=== PATIENT | female | born 1955 | race Caucasian/White ===

== ENCOUNTER 2019-10-27 05:34 | Inpatient (IN) | payer MEDICARE ==
[2019-10-15 09:13] LABS: HEMATOCRIT 41.6 % (37.0-47.0); HEMOGLOBIN 14.2 gm/dL (12.0-15.0); MCH 30.1 pg (26.0-34.0); MCHC 34.2 g/dL (28.0-37.0); MCV 88.1 fL (80.0-100.0); MPV 9.6 fl. (7.2-11.1); RBC 4.72 mil/uL (4.20-5.00)
[2019-10-15 09:24] LABS: PROTIME 10.6 Seconds (9.20-11.50)
[2019-10-15 09:25] LABS: URINE BILIRUBIN NEGATIVE (Negative); URINE BLOOD NEGATIVE (Negative); URINE CLARITY CLEAR; URINE COLOR YELLOW; URINE GLUCOSE-RANDOM NEGATIVE (Negative); URINE KETONES NEGATIVE (Negative); URINE LEUKOCYTES-REFLEX NEGATIVE (Negative); URINE NITRITE-REFLEX NEGATIVE (Negative); URINE PROTEIN NEGATIVE (Negative); URINE UROBILINOGEN 0.2 E.U./dl (0.2-1.0)
[2019-10-15 09:29] LABS: CALCIUM 9.8 mg/dL (8.5-10.1); POTASSIUM 4.1 mmol/L (3.5-5.1); TOTAL BILIRUBIN 0.3 mg/dL (<0.1-1.0); TOTAL PROTEIN 8.1 g/dL (6.4-8.2)
--- NOTE | 2019-10-21 13:44 | EKG ---
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
[~2019-10-27] VITALS: Ht 162.6 cm; Wt 79.4 kg
[~2019-10-27 05:34] MED LIST: ASA81BEC PO; DULOXETINE HCL60 MG PO; LUNESTA3 MG PO; NEURONTIN 300M300 M2 PO; NITROSTAT0.4 MG SUBLING; OMEPRAZOLE 20 M20 M1 PO; TIZANIDINE4 MG/1 TA1 PO
[2019-10-27 09:30] VITALS: BP 121/69
[2019-10-27 16:00] VITALS: BP 130/66
--- NOTE | 2019-10-27 18:20 | NUR ---
PT A&Ox4. VITALS STABLE. IV PATENT, INFUSING. UP WITH 1 USING GAITBELT AND WALKER. ON 2LO2 WITH PULSE OX. DRESSING C/D/I. PAIN CONTROLLED WITH OXY IR. TOLERATING DIET, DENIED NAUSEA. FALL PRECAUTIONS IN PLACE. CALL LIGHT WITHIN REACH. WILL CONTINUE TO MONITOR.
[2019-10-27 23:49] VITALS: BP 113/66
[2019-10-28 04:14] LABS: HEMATOCRIT 31.7 % (37.0-47.0); HEMOGLOBIN 10.8 gm/dL (12.0-15.0)
[2019-10-28 04:16] VITALS: BP 113/54
--- NOTE | 2019-10-28 04:25 | NUR ---
PATIENT UP TO RESTROOM WITH ASSIST X 1 WITH WALKER DOES WELL. RECEIVED HYDROCODONE Q4 FOR PAIN WHICH SHE IS RATING AT 6/10 AT 0430. O2 IS STILL 4L USING POLAR PACK, STILL HAS HEMOVAC AND DRESSING TO LEFT KNEE IS C/D/I AND JADA HOSE IN PLACE. PLAN IS FOR PAIN MANAGEMENT AND TO WORK WITH THERAPY TODAY. WILL CONTINUE TO FOLLOW PLAN OF CARE.
[2019-10-28 08:02] VITALS: BP 117/70
[2019-10-28] MEDS ORDERED: PERCOCET 5-3251 EACH PO (10:44)
[2019-10-28 10:45] VITALS: BP 117/70
[2019-10-28] MEDS ORDERED: XARELTO10 MG PO (10:45)
--- NOTE | 2019-10-28 11:54 | NUR ---
cm completed initial assessment to discuss d/c planning. pt is a&Ox4. pt sitting up in chair and is talkative. pt states she wants to do outpatient theray at "[facility] in [facility]." pt has crutches, riser and shower bench. pt has Hx w/HH but doesnt recall. pt has no hx w/snf. 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 t has good support. she is active and drives. cm faxed order to [facility].
[2019-10-28 12:12] VITALS: BP 111/54
--- NOTE | 2019-10-28 13:27 | NUR ---
RECIEVED O.T. EVAL AND TX ORDERS. WILL DEFER TO P.T. AT THIS TIME. PLEASE ORDER FURTHER O.T. SERVICES IF NEEDED.
--- NOTE | 2019-10-28 14:29 | NUR ---
DR. ESCALERA GAVE CM A VERBAL ORDER FOR PT.TO GO TO OUTPT.THERAPY AFTER DISCHARGE FROM HOSPITAL. SHE DOES NOT NEED TO DO HOME HEALTH. FAXED ORDER TO [facility] IN [facility]. THEY SAID THEY NEEDED AN ACTUAL PRESCRIPTION FOR OUTPT.ORDER. CM SPOKE WITH JNENIFER/ OFFICE AND INFORMED OF ABOVE. SHE WILL SET UP PTS OUTPT.THERAPY WITH [facility].
--- NOTE | 2019-10-28 14:32 | NUR ---
PT A/O X'S 4. C/O OF RIGHT KNEE PAIN. PRN PAIN MEDICATION ADMININSTERED PER NOV. PT SITTING IN CHAIR FOR MEALS. POLAR PACK IN PLACE. VSS. AFEBRILE. PT C/O OF ITCHYNESS AND STATED THIS STARTED AFTER SURGERY. BENADRYL ADMINISTERED PER NOV. PT DENIES ITCHYNESS IN THROAT.
--- NOTE | 2019-10-28 16:17 | OP ---
[facility] [address] [place] [address] OPERATIVE REPORT Name: JC DE LA ROSA Room: [address] IN [facility]#: [id number] Admission: 10/27/19 Attend Phys: Veena Loredo Discharge: Date of : 53 Report #: [id number] THIS REPORT FOR: //name// cc: Jessica Block MD, Pamela MD ~ THIS REPORT FOR: //name// CC: Jessica Nolasco DATE OF SERVICE: 10/27/2019 PREOPERATIVE DIAGNOSIS: Left knee osteoarthritis. POSTOPERATIVE DIAGNOSIS: Left knee osteoarthritis. PROCEDURE: Left total knee arthroplasty with Navio. SURGEON: Patrick Gaxiola II, DO. FAUCET POLISHER: ELLIOTT Porter. ANESTHESIA: General endotracheal. ESTIMATED BLOOD LOSS: 50 mL. ANTIBIOTICS: Ancef preoperatively. DRAINS: Medium Hemovac. COMPLICATIONS: None. CONDITION: The patient is stable to recovery room. IMPLANTS: Listed in operative record and progress note. BRIEF HISTORY: The patient was seen in the preoperative area. Preoperative H and P was performed. Site was marked. Questions were answered. Risks and benefits were discussed with the patient in detail about surgery. The patient wished to proceed assuming all risks. DESCRIPTION OF PROCEDURE: The patient was taken to the operative suite and placed supine on the operating table and given appropriate anesthesia. A well-padded tourniquet applied to upper thigh, which was inflated to 300 mmHg after gravity exsanguination. The operative knee was sterilely prepped and [facility] [address] [place] [address] OPERATIVE REPORT Name: JC DE LA ROSA Hollie Room: [address] IN M.R.#: [id number] Admission: 10/27/19 Attend Phys: Veena Loredo Discharge: Date of : 53 Report #: [id number] draped. Surgery began by midline incision. This was carried down to the subcutaneous tissues. A medial parapatellar arthrotomy was performed and carried down to bone. Patella was then everted and excess soft tissues and osteophytes removed from around the femur and tibia. The [employer] robotic and alignment guides were then placed on the femur and tibia, registered with the software, and the robotic handpiece was activated. Appropriate femoral and tibial cutting guides were then applied and appropriate cut was made on the femur. The 4-in-1 cutting block was then applied, checked for rotational alignment with the Navio robotic assistance, pinned in appropriate position, and appropriate cuts were made. The tibia was exposed. Excess meniscus was removed. The retractors were placed on collateral ligaments. The tibial cutting block was then applied, checked with robotic assistance, and appropriate cut was made. Excess bone was removed. Tibial base plate was then applied, checked for rotational alignment with the robotic assistance, and pinned in appropriate position. Femur was then applied and box cut was reamed. This was then trialed with appropriate spacer, which showed excellent fit and fill and excellent stability of the knee through all range of motion with the robotic-assisted device. The patella was reamed in appropriate fashion and sized to appropriate size. Three peg holes were drilled. It was then trialed and showed excellent flexion and extension and excellent tracking of the patella within the groove. These trials were then removed. The tibia was punched in appropriate fashion. Bone ends were cleansed with Pulsavac irrigation and cement was mixed and applied to final implants. These were then malleted into position and held the knee in extension and compressed to allow cement to cure. After it cured, excess was removed using [place] and osteotome. Wound was then copiously irrigated and the final spacer was then malleted into position. The tourniquet was deflated. Hemostasis was maintained with electrocautery. Pain cocktail was injected. PRP gel sprayed to internal aspects of the knee. The tracker guides were then removed as well as the pins from the femur and tibia. The capsule was then closed utilizing a #2 FiberWire and #1 Vicryl in [id number] fashion. Hemovac drain was applied. Skin was closed with 2-0 Vicryl and running 3-0 Monocryl. Dermabond and sterile dressing applied. Bautista wrap and PolarCare applied. The patient transported to recovery room in stable condition. Counts were correct throughout the procedure. <ELECTRONICALLY SIGNED> By: Patrick Gaxiola II, DO 10/28/19 1617 [id number] Gaxiola II, DO /nt
--- NOTE | 2019-10-28 16:56 | NUR ---
RECEIVED DISCHARGE ORDERS. IV DC'D. PT EDUCATED ON DISCHARGE INSTRUCTIONS BY NEPTALI VALLE. ALL BELONGINGS INCLUDING CPM PACKED UP AND LEFT WITH PATIENT. SCRIPTS GIVEN TO PATIENT.
--- NOTE | 2019-10-29 08:50 | NUR ---
I have reviewed the documentation by CAESAR SINGH from 10/28/19 to 10/28/19 and I concur with it. SANTIAGO GUILLERMO
== END 2019-10-28 16:57 | disposition home health service (06) | DRG 470 ==
LOC: M.PRE 05:34 → M.ORTHSURG 08:34 → M.TBA 08:34 → M.PRE 09:06 → M.ORTHSURG 15:01
PROVIDERS: Orthopaedic Surgery; ADMIT Internal Medicine
PROC: 0SRD069 Replacement of Left Knee Joint with Oxidized Zirconium on Polyethylene Synthetic Substitute, Cemented, Open Approach (ICD-10-PCS; principal; 2019-10-27)
PROC: 8E0Y0CZ Robotic Assisted Procedure of Lower Extremity, Open Approach (ICD-10-PCS; principal; 2019-10-27)
DX: M17.12 Unilateral primary osteoarthritis, left knee (principal); F32.9 Major depressive disorder, single episode, unspecified; G25.81 Restless legs syndrome; M19.90 Unspecified osteoarthritis, unspecified site; E78.00 Pure hypercholesterolemia, unspecified; G47.33 Obstructive sleep apnea (adult) (pediatric); K21.9 Gastro-esophageal reflux disease without esophagitis; Z88.2 Allergy status to sulfonamides; Z91.048 Other nonmedicinal substance allergy status; Z79.82 Long term (current) use of aspirin; Z88.1 Allergy status to other antibiotic agents; Z79.899 Other long term (current) drug therapy; Z90.710 Acquired absence of both cervix and uterus; Z87.891 Personal history of nicotine dependence; Z72.89 Other problems related to lifestyle; Z23 Encounter for immunization